=== PATIENT | male | born 1935 | race Caucasian/White ===

== ENCOUNTER → 2016-11-06 | Outpatient (CLI) | payer OTHER ==
--- NOTE | 2016-11-06 13:39 | DI ---
CT BONE DENSITOMETRY OF THE SPINE AND HIP, 11/06/2016 12:37 PM : Clinical History: Osteoporosis in a male patient. Previous Exam: None at this facility. 3D Quantitative CT (QCT) Bone Mineral Densitometry: The [place] scans show osteoporotic compression fracture of L2 with loss of height of approximately 2 5%. Low dose scans are sampled through the midbodies of L3 and L4 because of the compression fracture . Average bone mineral density (BMD) is 64.1 mg/mL corresponding to a volumetric T-score of -4.1, and Z-score of -1.1. The [employer]'s (ACR) volumetric QCT BMD conversion table categ orizes this patient as having osteoporosis of the lumbar spine. CT X-Ray Absorptiometry (CTXA) Bone Mineral Densitometry of the Left Hip: Total hip BMD: 657 mg/cm2 T-score: -2.3 Z-score: -0.1 Femoral neck BMD: 574 mg/cm2 T-score: -2.0 Z-score: 0.1 READIN. The QCT lumbar spine BMD value by ACR's 3D volumetric to 2D areal conversion categorizes this pat ient as having osteoporosis of the lumbar spine. The QCT spine T-score is -4.1. The presence of a com pression fracture at L2 indicates this patient by definition has severe osteoporosis. 2. The CTXA total hip and femoral neck BMD T-scores are -2.3 and -2.0, respectively. The left total hip T-score indicates this patient has osteopenia of the total hip, but the value is approaching the category of osteoporosis.
== END ==
LOC: CT 12:32
PROVIDERS: ATTEND Family Medicine
DX: M81.0 Age-related osteoporosis without current pathological fracture (principal)
CPT/HCPCS: 77078